=== PATIENT | male | born 1980 | race Caucasian/White ===

== ENCOUNTER 2016-05-02 11:10 | Emergency (ER) | payer MEDICAID ==
[~2016-05-02] VITALS: Ht 177.8 cm; Wt 104.3 kg
[2016-05-02 11:10] VITALS: BP 97/52; PULSE 114; RESP 16; TEMP 98.2; O2SAT 99
--- NOTE | 2016-05-02 11:14 | NUR ---
Patient in stable condition, alert and oriented x4. 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 No shortness of breath noted, patient states is not having trouble breathing. Generalized redness noted to skin. No swelling of tounge or to throat. States feels itchy. No sting sites noted to body. No other complaints/injuries per patient or noted.
--- NOTE | 2016-05-02 11:15 | NUR ---
Dr. Nixon at bedside
[2016-05-02] MEDS ORDERED: ONDANSETRON HCL 4 MG/2 ML VIAL IVP ONE (11:30)
[2016-05-02] MEDS ORDERED: DIPHENHYDRAMINE INJ 50 MG/ML VIAL IVP ONE (11:30)
[2016-05-02] MEDS ORDERED: NACL 0.9% 1,000 ML IV ONE (11:30)
[2016-05-02] MEDS ORDERED: methylPREDNISolone SOD SUCC/PF 62.5 MG/ML VIAL IVP ONE (11:30)
--- NOTE | 2016-05-02 12:00 | NUR ---
Patient resting in bed, no distress noted. No shortness of breath per patient or noted.
[2016-05-02 12:30] VITALS: BP 116/75; PULSE 95; RESP 18; TEMP 98; O2SAT 99
--- NOTE | 2016-05-02 12:30 | NUR ---
Patient given written and verbal discharge instructions and verbalizes understanding. ER MD discussed with patient the results and treatment provided. Given copies of tests performed in ER. Patient in stable condition. ID arm band removed. IV catheter removed intact and dressing applied, no active bleeding. Rx of Medrol Dosepak given. Patient educated on pain management and to follow up with PMD in 2 days. Pain scale 0/10. Opportunity for questions provided and answered. Addendum: 05/02/16 at 1236 by AILYN NO copies of tests given to patient
== END 2016-05-02 12:30 | disposition home or self-care (01) ==
LOC: SED 11:10
DX: T63.441A Toxic effect of venom of bees, accidental (unintentional), initial encounter (principal); Y92.89 Other specified places as the place of occurrence of the external cause
CPT/HCPCS: 96361; 96374; 96375; 99284; J1200; J2405; J2930; J7030